=== PATIENT | male | born 1965 | race Hispanic/Latino ===

== ENCOUNTER 2018-01-06 04:47 | Emergency (ER) | payer BC ==
[~2018-01-06] VITALS: Ht 165.1 cm; Wt 77.1 kg
[2018-01-06] MEDS ORDERED: LIDOCAINE VISCOUS ONE (05:23)
[2018-01-06 05:24] LABS: BASOPHIL % 0.3 % (0.0-0.2); EOSINOPHIL # 0.3 10^3/uL (0.0-0.2); EOSINOPHIL % 2.9 % (0.0-5.0); HEMOGLOBIN 15.2 g/dL (13.9-16.3); LYMPHOCYTES # 3.2 10^3/uL (1.0-4.8); LYMPHOCYTES % 26.8 % (24.0-44.0); MEAN CELL HGB 30.5 pg (26-34); MEAN CELL HGB CONCENTRATION 34.2 g/dL (33-37); MEAN PLATELET VOLUME 12.4 fL (7.8-11.0); MONOCYTES # 0.9 10^3/uL (0.3-0.8); MONOCYTES % 7.8 % (5.0-12.0); NEUTROPHIL # 7.3 10^3/uL (1.8-7.7); NEUTROPHILS % 61.9 % (41.0-85.0); RED CELL DISTRIBUTION WIDTH 14.4 % (11.5-14.5); WHITE BLOOD CELL 11.8 10^3/uL (4.5-11.0)
[2018-01-06] MEDS ORDERED: TORADOL ONE (05:24)
[2018-01-06] MEDS ORDERED: MYLANTA ONE (05:24)
--- NOTE | 2018-01-06 05:31 | NUR ---
URINE COLLECTED AND TAKEN TO LAB
[2018-01-06] MEDS ORDERED: MORPHINE SULFATE ONE (05:36)
[2018-01-06 05:37] LABS: BILIRUBIN,URINE NEGATIVE (NEGATIVE); UROBILINOGEN,URINE NORMAL (NEGATIVE)
[2018-01-06] MEDS ORDERED: LIDOCAINE VISCOUS MM STA (05:41)
[2018-01-06] MEDS ORDERED: MYLANTA PO STA (05:41)
[2018-01-06] MEDS ORDERED: TORADOL IV STA (05:41)
[2018-01-06 05:42] LABS: APPEARANCE,URINE CLEAR (CLEAR); UA COLOR YELLOW (YELLOW)
[2018-01-06 05:42] LABS: CALCIUM 8.6 mg/dL (8.4-10.5); CARBON DIOXIDE 26.5 mmol/L (20.0-32)
[2018-01-06 06:05] VITALS: BP 150/85
[2018-01-06] MEDS ORDERED: MORPHINE SULFATE IV STA (06:05)
[2018-01-06] MEDS ORDERED: PROTONIX IV IV STA (06:27)
[2018-01-06] MEDS ORDERED: PROTONIX IV IV ONE (06:36)
[2018-01-06] MEDS ORDERED: NS 100ML 100 ML IV ONE (06:36)
--- NOTE | 2018-01-06 07:07 | ER.PDOC ---
General Chief Complaint: Abdomen Pain Stated Complaint: ABD PAIN Time seen by MD: 05:18 Source: patient Exam Limitations: no limitations History of Present Illness Initial Comments acute onset of abdomainal piain, denies fever, chills, no vomiting, but nauseaous, Severity/Quality: severe Radiation: no radiation Allergies: Coded Allergies: No Known Allergies (Unverified , 01/06/18) Vital Signs First Vital Signs Date Time Temp Pulse Resp B/P (MAP) Pulse Ox O2 Delivery O2 Flow Rate FiO2 01/06/18 04:48 97.6 51 18 100 01/06/18 06:05 150/85 (106) Last Vital Signs Date Time Temp Pulse Resp B/P (MAP) Pulse Ox O2 Delivery O2 Flow Rate FiO2 01/06/18 06:05 97.6 53 14 150/85 (106) 94 Past Medical History Medical History: cardiac problems, other (bradycardia) Surgical History: knee, stent Social History Smoking: chew Alcohol Use: occassionally Drug Use: none Constitutional: no symptoms reported EENTM: no symptoms reported Respiratory: no symptoms reported Cardiovascular: no symptoms reported Gastrointestinal: see HPI, nausea, denies vomiting Physical Exam General Appearance: Severe Distress HEENT: PERRL/EOMI, Normal ENT Inspection, TMs Normal, Pharynx Normal Neck: Non-Tender, Full Range of Motion, Supple, Normal Inspection Respiratory: chest non-tender, lungs clear, normal breath sounds, no respiratory distress, no accessory muscle use Cardiovascular: Normal Peripheral Pulses, No Edema, No Gallop, No JVD, No Murmur, Bradycardia Gastrointestinal: Normal Bowel Sounds, Soft, Tenderness (EPIGASTRIC > RUQ) Back: Normal Inspection, No CVA Tenderness, No Vertebral Tenderness Extremities: Normal Range of Motion, Non-Tender, Normal Inspection, No Pedal Edema, No Calf Tenderness, Normal Capillary Refill, Pelvis Stable Neurologic/Psychiatric: 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 specialist II-XII NML as Tested, No Motor/Sensory Deficits, Alert, Normal Mood/Affect, Oriented x 3 Skin: Normal Color, Warm/Dry Lymphatic: No Adenopathy Results/Orders Results/Orders Laboratory Tests Test 01/06/18 05:18 01/06/18 05:20 White Blood Count 11.8 10^3/uL (4.5-11.0) Red Blood Count 4.99 10^6/uL (4.50-5.90) Hemoglobin 15.2 g/dL (13.9-16.3) Hematocrit 44.4 % (37.0-53.0) Mean Corpuscular Volume 89.0 fL (78-100) Mean Corpuscular Hemoglobin 30.5 pg (26-34) Mean Corpuscular Hemoglobin Concent 34.2 g/dL (33-37) Red Cell Distribution Width 14.4 % (11.5-14.5) Platelet Count 150 10^3/uL (150-400) Mean Platelet Volume 12.4 fL (7.8-11.0) Neutrophils (%) (Auto) 61.9 % (41.0-85.0) Lymphocytes (%) (Auto) 26.8 % (24.0-44.0) Monocytes (%) (Auto) 7.8 % (5.0-12.0) Neutrophils # (Auto) 7.3 10^3/uL (1.8-7.7) Lymphocytes # (Auto) 3.2 10^3/uL (1.0-4.8) Monocytes # (Auto) 0.9 10^3/uL (0.3-0.8) Absolute Immature Granulocyte (auto 0.03 10^3 u/L (0-2) Eosinophils % 2.9 % (0.0-5.0) Basophils % 0.3 % (0.0-0.2) Basophils # 0.0 10^3/uL (0.0-0.1) Eosinophil Count 0.3 10^3/uL (0.0-0.2) Prothrombin Time 10.5 SEC (9.8-11.9) Prothrombin Time INR (Non-Therap) 1.1 Activated Partial Thromboplast Time 22.5 SEC (24.67-30.72) Sodium Level 144 mmol/L (132-145) Potassium Level 3.7 mmol/L (3.6-5.2) Chloride Level 107.0 mmol/L (96-109) Carbon Dioxide Level 26.5 mmol/L (20.0-32) Anion Gap 14.2 Blood Urea Nitrogen 19 mg/dL (7-18) Creatinine 0.97 mg/dL (0.59-1.40) Estimated GFR () 98.3 (>/=60) BUN/Creatinine Ratio 19.0 Glucose Level 166 mg/dL (70-110) Calcium Level 8.6 mg/dL (8.4-10.5) Total Bilirubin 0.9 mg/dL (0.2-1.0) Aspartate Amino Transf (AST/SGOT) 26 U/L (0-35) Alanine Aminotransferase (ALT/SGPT) 36 U/L (12-78) Alkaline Phosphatase 76 U/L (50-136) Total Protein 7.7 g/dL (6.4-8.2) Albumin 3.7 g/dL (3.4-5.0) Globulin 4.0 Amylase Level 66 U/L (25-115) Lipase 125 U/L (114-286) Percent Immature Gran (Cell Imm) 0.30 % (0.00-0.50) Helicobacter pylori Screen POSITIVE (NEGATIVE) Urine Collection Type UNKNOWN Urine Color YELLOW (YELLOW) Urine Appearance CLEAR (CLEAR) Urine Bilirubin NEGATIVE MG/DL (NEGATIVE) Urine Ketones NEGATIVE (NEGATIVE) Urine Specific [place] 1.025 (1.005-1.035) Urine pH 6 (5.0-6.0) Urine Protein NEGATIVE (NEGATIVE) Urine Urobilinogen NORMAL (NEGATIVE) Urine Nitrate NEGATIVE (NEGATAIVE) Urine Leukocyte Esterase NEGATIVE (NEGATIVE) Urine Blood NEGATIVE (NEGATIVE) Urine Glucose NORMAL (NEGATIVE) Administered Medications Medications (Trade) Dose Ordered Sig/Caity Route PRN Reason Start Time Stop Time Status Last Admin Dose Admin Ketorolac Tromethamine (Toradol) 30 mg STAT STAT IV 01/06/18 05:41 01/06/18 05:42 DC 01/06/18 05:25 Lidocaine HCl (Lidocaine Viscous) 15 ml STAT STAT MM 01/06/18 05:41 01/06/18 05:42 DC 01/06/18 05:38 Morphine Sulfate (Morphine Sulfate) 10 mg STAT STAT IV 01/06/18 06:05 01/06/18 06:08 DC 01/06/18 05:45 Pantoprazole Sodium (Protonix Iv) 40 mg STAT STAT IV 01/06/18 06:27 01/06/18 06:28 UNV 01/06/18 06:43 Progress Progress no response to GI cocktail responded to morphine, states good relief will check CT abd/pelvis to rule out occult pathology Dr Husain EKG/XRAY/CT/US EKG Comments: SINUS GRABIEL Course Blood Pressure Systolic: 150 Blood Pressure Diastolic: 85 Blood Pressure Mean: 106 Notes admission offered Departure Time of Disposition: 08:33 Disposition: 01 HOME, SELF-CARE Impression: Primary Impression: Biliary colic Condition: Improved Patient Instructions: Abdominal Pain, [id number] Referrals: PCP,UNKNOWN (PCP) PRIMARY CARE PROVIDER Duration or Time Spent with Pa: [address] NUÑEZ MD Jan 06, 2018 07:07 HUGO OLIVAS MD Jan 06, 2018 07:46
--- NOTE | 2018-01-06 07:14 | NUR ---
CT PT TAKEN TO CT
--- NOTE | 2018-01-06 07:24 | NUR ---
CT PT BACK FROM CT
--- NOTE | 2018-01-06 07:41 | PCM.EKG ---
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
--- NOTE | 2018-01-06 07:47 | DIREP ---
PROCEDURE:CT ABDOMEN/PELVIS W/ CONTRAST COMPARISON:None. INDICATIONS:upper abdominal pain TECHNIQUE:Axial images were created through the abdomen and pelvis with non-ionic intravenous contrast material. No oral contrast was given. Sagittal and coronal reconstructions were performed from source images. FINDINGS: LUNG BASES:Lung bases are clear. Normal heart size. Coronary artery calcifications are not noted. There is a 1.3 x 2.1 x 1 cm (AP by transverse by craniocaudal diameter, respectively), in the all left ventricle. No pericardial effusions. LIVER:No focal mass. Faint radiolucency suggestive of periportal edema. BILIARY:Normal. No visible dilatation or calcification. PANCREAS:Normal. No lesion, fluid collection, ductal dilatation, or atrophy. SPLEEN:Normal. No enlargement or focal lesion. ADRENALS:Normal. No mass or enlargement. URINARY TRACT:No hydronephrosis or solid mass. Incidental note is made of a 1 cm right renal cyst. AORTA/VASCULAR:Scattered arterial calcifications. No aneurysm. RETROPERITONEUM:Normal. No mass or adenopathy. BOWEL/MESENTERY:No intestinal obstruction, free air, or free fluid. No mesenteric inflammation. The appendix is normal. ABDOMINAL WALL:There is a small fat containing left inguinal hernia. PELVIC ORGANS:Normal. No visible mass. Pelvic organs appropriate for patient age. BONES:Normal for age. No bony lesion or acute fracture. OTHER:Negative. CONCLUSION: 1. Nonspecific periportal edema is of uncertain clinical significance but raises the possibly of an intra-abdominal inflammatory or infectious process. No other abnormalities of abnormality are seen in the abdomen or pelvis. Recommend close clinical follow-up and correlation. 2. The area of relative radiolucency in the left ventricle is of uncertain clinical significance. Diffuse diagnosis includes thrombus an old subendocardial infarct. Recommend correlation with clinical findings and history as well as with echocardiography, if this has not already been previously investigated. 3. Small fat containing left inguinal hernia. Dictated by: Lonnie Serna M.D. on 01/06/2018 at 07:39 AM
[2018-01-06 08:27] VITALS: BP 164/94
--- NOTE | 2018-01-06 09:02 | DIREP ---
PROCEDURE:US ABDOMEN LIMITED(SINGLE ORGAN-QUAD) COMPARISON:[facility], CT, CT ABD/PELVIS W/ CONTRAST, 01/06/2018, 07:08 AM. INDICATIONS:RUQ PAIN FINDINGS: CBD:0.4 cm GALLBLADDER WALL THICKNESS:0.3 cm RIGHT KIDNEY:11.3 x 4.9 x 5.3 cm PANCREAS:The pancreas is largely obscured by bowel gas shadowing. LIVER:Normal hepatic parenchymal architecture. GALLBLADDER:There is sludge present in the dependent portion of the gallbladder. A trace amount of pericholecystic fluid is identified. BILIARY:There is no biliary ductal dilatation. RIGHT KIDNEY:Normal. No hydronephrosis. OTHER:Negative. No ascites is identified. CONCLUSION: 1. No evidence of gallstones or biliary ductal dilatation Minimal pericholecystic fluid and a small amount of intraluminal sludge is seen in the gallbladder. 2. If there is strong clinical suspicion for gallbladder disease as a cause of for the patient's presenting symptoms, radionuclide hepatobiliary scan may be obtained for further E evaluation. Dictated by: JBA Physician on 01/06/2018 at 08:54 AM [email or web address]
[2018-01-06 09:20] VITALS: BP 158/90
[2018-01-06 09:21] VITALS: BP 158/90
== END 2018-01-06 09:20 | disposition home or self-care (01) ==
LOC: ER 04:47
DX: K80.50 Calculus of bile duct without cholangitis or cholecystitis without obstruction (principal); R00.1 Bradycardia, unspecified; R11.0 Nausea; F17.220 Nicotine dependence, chewing tobacco, uncomplicated
CPT/HCPCS: 36415; 74177; 76705; 80053; 80307; 81002; 82150; 82550; 82553; 83690; 84484; 85025; 85610; 85730; 86677; 93005; 96374; 96375; 99285; C9113; J1885; J2270; J3490; J7050; Q9965